=== PATIENT | male | born 1990 | race African-American/Black ===

== ENCOUNTER 2020-11-09 13:49 | Outpatient (REF) | payer BC, SELFPAY ==
[2020-11-11 19:17] LABS: C. trachomatis RNA TMA NOT DETECTED (NOT DETECTED); N. gonorrhoeae RNA TMA NOT DETECTED (NOT DETECTED)
== END 2020-11-09 13:50 | disposition home or self-care (01) ==
LOC: HO.LAB 13:49
PROVIDERS: Visit Provider Nurse Practitioner Family
DX: Z20.2 Contact with and (suspected) exposure to infections with a predominantly sexual mode of transmission (principal)
CPT/HCPCS: 36415; 87255; 87491; 87591